=== PATIENT | female | born 1975 | race Caucasian/White ===

== ENCOUNTER 2017-08-20 17:30 | Emergency (ER) | payer MEDICAID, OTHER ==
[2017-08-20] MEDS ORDERED: Ibuprofen TAB* 800 MG PO ONE (19:50)
[2017-08-20] MEDS ORDERED: oxyCODONE/Acetamin 5/325 MG* TAB PO ONE (19:50)
[2017-08-20] MEDS ORDERED: Clindamycin CAP* 150 MG PO ONE (19:50)
--- NOTE | 2017-08-20 20:38 | ED ---
Jesse Cary Tecjoon, scribed for Inderjit Juarez MD on 08/20/17 at 1958 . Headache - HPI Summary HPI Summary: This patient is a 41 year old female presenting to [facility] accompanied by son with a chief complaint of left sided face pain since about 1.5 weeks ago. The pain is rated 8/10 in severity. Symptoms aggravated by touch. Symptoms alleviated by nothing. Patient additionally reports left sided dental pain, sinus pressure, headache, lightheaded, nausea. Patient denies fever, vomiting. Patient notes that this headache is unfamiliar. - History Of Current Complaint Chief Complaint: EDHeadache Stated Complaint: HEADACHE Time Seen by Provider: 08/20/17 19:36 Hx Obtained From: Patient Onset/Duration: Started weeks ago - 1.5 Currently Pain Is: Moderate - 8/10 Timing: Constant Character: Pressure - sinus pressure Location of Headache: Other: - left sided Radiates to: teeth Aggravating Factor: Nothing Allevating Factors: Nothing Associated Signs And Symptoms: Negative - fever, vomiting, Other (Noted In Comments) - left sided dental pain, sinus pressure, headache, lightheaded, nausea, face pain - Allergies/Home Medications Allergies/Adverse Reactions: Allergies Allergy/AdvReac Type Severity Reaction Status Date / Time Penicillins Allergy Severe hives, Verified 12/20/15 13:50 vomiting Bee Venom Allergy Airway Verified 12/20/15 13:50 Obstruction ORANGES Allergy Hives/Diff. Uncoded 12/20/15 13:50 Breathing/I tching RUBBING ALCOHOL Allergy Blisters Uncoded 12/20/15 13:50 PMH/Surg Hx/FS Hx/Imm Hx Previously Healthy: No Endocrine/Hematology History: Denies: Hx Diabetes Cardiovascular History: Denies: Hx Hypertension, Hx Pacemaker/ICD Respiratory History: Reports: Hx Asthma - H/O BRONCHIAL ASTHMA History: Denies: Hx Renal Disease Sensory History: Denies: Hx Hearing Aid Psychiatric History: Denies: Hx Panic Disorder - Cancer History Hx Chemotherapy: No Hx Radiation Therapy: No Infectious Disease History: No Infectious Disease History: Denies: Traveled Outside the [place] in Last 30 Days - Family History Known Family History: Negative: Blood Disorder - Social History Alcohol Use: Weekly Hx Substance Use: No Substance Use Type: Reports: None Hx Tobacco Use: Yes Smoking Status (MU): Light Every Day Tobacco Smoker Review of Systems Positive: Other - lightheadedness. Negative: Fever Positive: Dental Pain, Other - sinus pressure, left sided face pain Positive: Nausea. Negative: Vomiting Positive: Headache All Other Systems Reviewed And Are Negative: Yes Physical Exam - Summary Physical Exam Summary: VITAL SIGNS: Reviewed. GENERAL: Patient is a well-developed and nourished female who is lying comfortable in the stretcher. Patient is not in any acute respiratory distress. HEAD AND FACE: No signs of trauma. No ecchymosis, hematomas or skull depressions. Tenderness in left maxilla. EYES: PERRLA, EOMI x 2, No injected conjunctiva, no nystagmus. EARS: Hearing grossly intact. Ear canals and tympanic membranes are within normal limits. MOUTH: Oropharynx within normal limits. Tenderness in left upper gum, anteriorly. NECK: Supple, trachea is midline, no adenopathy, no JVD, no carotid bruit, no c- spine tenderness, neck with full ROM. CHEST: Symmetric, no tenderness at palpation LUNGS: Clear to auscultation bilaterally. No wheezing or crackles. CVS: Regular rate and rhythm, S1 and S2 present, no murmurs or gallops appreciated. ABDOMEN: Soft, non-tender. No signs of distention. No rebound no guarding, and no masses palpated. Bowel sounds are normal. EXTREMITIES: FROM in all major joints, no edema, no cyanosis or clubbing. NEURO: Alert and oriented x 3. No acute neurological deficits. Speech is normal and follows commands. SKIN: Dry and warm Triage Information Reviewed: Yes Vital Signs On Initial Exam: Initial Vitals Temp Pulse Resp BP Pulse Ox 98.7 F 83 20 117/46 97 08/20/17 17:34 08/20/17 17:34 08/20/17 17:34 08/20/17 17:34 08/20/17 17:34 Vital Signs Reviewed: Yes Diagnostics - Vital Signs Vital Signs Temp Pulse Resp BP Pulse Ox 08/20/17 17:34 98.7 F 83 20 117/46 97 - Laboratory Lab Statement: Any lab studies that have been ordered have been reviewed, and results considered in the medical decision making process. Headache Course/Dx - Course Course Of Treatment: This patient is a 41 year old female presenting to [facility] accompanied by son with a chief complaint of left sided face pain since about 1.5 weeks ago. The pain is rated 8/10 in severity. Symptoms aggravated by touch. Patient additionally reports left sided dental pain, sinus pressure, headache, lightheaded, nausea. In the ED course the patient was given Clindamycin, Motrin, and Percocet. Patient has tenderness of right upper gum and maxilla. Most likely gingivitis. Patient will be given prescription for antibiotics and pain meds. Patient is advised to follow up with PCP and dentist in 1-2 days. The patient is agreeable with this plan. - Diagnoses Provider Diagnoses: Gingivitis Discharge - Discharge Plan Condition: Fair Disposition: HOME Prescriptions: Clindamycin Cap(NF) [Clindamycin Cap 300 mg Cap(NF)] 300 mg PO Q6H #30 cap oxyCODONE/Acetamin 5/325 MG* [Percocet 5/325 TAB*] 1 tab PO Q6H PRN #14 tab MDD 4 PRN Reason: Pain - Moderate To Severe Patient Education Materials: Gingivitis (ED), Atypical Facial Pain (ED) Referrals: Gema Jackson MD [Primary Care Provider] - 2 Days Additional Instructions: Patient will be given prescription for antibiotics and pain meds. Patient is advised to follow up with PCP and dentist in 1-2 days. The patient is agreeable with this plan. The documentation as recorded by the Jesse portillo Tecjoon accurately reflects the service I personally performed and the decisions made by Larry desouza Abdul, MD.
[2017-08-20 21:22] VITALS: BP 119/59
== END 2017-08-20 21:22 | disposition home or self-care (01) ==
LOC: ED 17:30
DX: K05.10 Chronic gingivitis, plaque induced (principal); Z72.0 Tobacco use
CPT/HCPCS: 99282; A9270-GY

== ENCOUNTER 2019-11-11 05:43 | Observation (INO) | payer OTHER ==
[~2019-11-11 05:43] MED LIST: Buffered Lidocaine 1% SYRIN* 1 ML/SYRINGE INTRADERM ONE
[2019-11-11] MEDS ORDERED: Famotidine IV* 10 MG/ML 2 ML (20 mg) IV ONE (06:00)
[2019-11-11] MEDS ORDERED: Lactated Ringers 1000 ML Bag* 1,000 ML IV SCH ×2 (06:00→10:00)
[2019-11-11] MEDS ORDERED: Famotidine IV* 10 MG/ML 2 ML (20 mg) ONE (06:35)
[2019-11-11] MEDS ORDERED: Clindamycin 900 MG/D5W BAG(*) 900 MG/50 ML BAG IVPB ONE (07:10)
[2019-11-11] MEDS ORDERED: Ketorolac INJ* 30 MG/ML 1 ML VIAL ONE (07:13)
[2019-11-11] MEDS ORDERED: Dexamethasone IV* 4 MG/ML 1 ML (4 MG) ONE (07:13)
[2019-11-11] MEDS ORDERED: Rocuronium* 10 MG/ML VIAL ONE (07:13)
[2019-11-11] MEDS ORDERED: fentaNYL* 50 MCG/ML 5 ML VIAL (250 MCG VIAL) ONE (07:13)
[2019-11-11] MEDS ORDERED: Lidocaine 2% PF * 5 ML VIAL ONE (07:13)
[2019-11-11] MEDS ORDERED: Propofol* 10 MG/ML 20 ML BTL ONE (07:13)
[2019-11-11] MEDS ORDERED: Midazolam* 1 MG/ML 5 ML VIAL (5 MG) ONE (07:13)
[2019-11-11] MEDS ORDERED: Ondansetron INJ* 2 MG/ML VIAL ONE (07:13)
[2019-11-11] MEDS ORDERED: Bupivacaine 0.5%* 50 ML MDV VIAL ONE (07:32)
[2019-11-11] MEDS ORDERED: NS 0.9% IVPB ONE (08:00)
[2019-11-11] MEDS ORDERED: GENTAMICIN ADULT IVPB ONE (08:00)
[2019-11-11] MEDS ORDERED: EPHEDrine (Pressors)* 50 MG/ML VIAL ONE (08:19)
[2019-11-11] MEDS ORDERED: Levalbuterol 0.63MG/3ML NEB* UNIT OF USE INH PRN (09:10)
[2019-11-11] MEDS ORDERED: Naloxone* 0.4 MG/ML 1 ML VIAL IV PRN (09:10)
[2019-11-11] MEDS ORDERED: Ondansetron INJ* 2 MG/ML VIAL IV PRN ×2 (09:10→09:44)
[2019-11-11] MEDS ORDERED: fentaNYL* 50 MCG/ML 2 ML VIAL (100 MCG VIAL) IV PRN (09:10)
[2019-11-11] MEDS ORDERED: HYDROmorphone INJ1* 1 MG/ML SYRINGE IV PRN (09:10)
[2019-11-11] MEDS ORDERED: Neostigmine Methylsulfate* 1 MG/ML 10 ML VIAL (1 mg/ml) ONE (09:20)
[2019-11-11] MEDS ORDERED: Glycopyrrolate IV* 0.2 MG/ML 1 ML VIAL ONE (09:20)
[2019-11-11] MEDS ORDERED: HYDROmorphone INJ1* 1 MG/ML SYRINGE ONE (09:21)
[2019-11-11] MEDS ORDERED: Ibuprofen TAB* 600 MG PO PRN (09:44)
[2019-11-11] MEDS ORDERED: oxyCODONE/Acetamin 5/325 MG* TAB PO PRN (09:44)
[2019-11-11] MEDS ORDERED: Docusate CAP* 100 MG PO PRN (09:47)
[2019-11-11] MEDS ORDERED: Simethicone TAB* 80 MG TAB.CHEW PO PRN (09:47)
[2019-11-11 17:35] VITALS: BP 108/69
[2019-11-11 18:52] LABS: ABS Lymphocytes 1.2 10^3/ul (1.0-4.8); ABS Monocytes 0.2 10^3/ul (0-0.8); ABS Neutrophils 7.7 10^3/ul (1.5-7.7); Hematocrit 41 % (35-47); Lymphocyte % 13.3 %; Mean Corpuscular HGB Conc 35 g/dL (31-36); Mean Corpuscular Hemoglobin 34 pg (27-31); Mean Corpuscular Volume 97 fL (80-97); Mean Platelet Volume 6.9 fL (7.4-10.4); Platelet Count 245 10^3/uL (150-450); Red Blood Count 4.19 10^6 /uL (3.70-4.87); Red Cell Distribution Width 13 % (10-15); White Blood Count 9.2 10^3/uL (3.5-10.8)
--- NOTE | 2019-11-11 19:12 | PN ---
Progress Note - Progress Note Date of Service: 11/11/19 SOAP: Subjective: [Patient is post Laparoscopic supracervical hysterectomy and bilateral salpingectomy today at 10 am. She is tolerating a regular diet ( lunch and dinner), ambulating and voiding with no difficulty, and pain is tolerable with oral medications. She denies nausea/vomiting, chest pain, shortness of breath.] Objective: [ Temp Pulse Resp BP Pulse Ox 97.5 F 59 16 108/69 100 11/11/19 17:34 11/11/19 17:34 11/11/19 17:34 11/11/19 17:34 11/11/19 17:34 Laboratory Results - last 24 hr 11/11/19 18:46 WBC 9.2 RBC 4.19 Hgb 14.0 Hct 41 MCV 97 MCH 34 H MCHC 35 RDW 13 Plt Count 245 MPV 6.9 L Neut % (Auto) 84.5 Lymph % (Auto) 13.3 Rosebud % (Auto) 2.0 Eos % (Auto) 0.0 Baso % (Auto) 0.2 Absolute Neuts (auto) 7.7 Absolute Lymphs (auto) 1.2 Absolute Monos (auto) 0.2 Absolute Eos (auto) 0.0 Absolute Basos (auto) 0.0 Absolute Nucleated RBC 0.0 Nucleated RBC % 0.0 Lungs CTA b/l, no CVA tenderness b/l CV RRR no abnormal heart sounds noted. Abdomen soft, normal bowel sounds, mildly distended, appropriately tender with clean/dry/intact wound dressings. ] Assessment: [Patient is stable, ambulating with normal vital signs, post-operative CBC, tolerating reg diet on PO meds.] Plan: [Discharge home, discharge instructions reviewed with the patient. She has f/u appt at my office in 1 week.]
--- NOTE | 2019-11-12 22:16 | DS ---
DISCHARGE SUMMARY: DATE OF ADMISSION: 11/11/19 DATE OF DISCHARGE: 11/11/19 ADMISSION DIAGNOSES: 1. Chronic pelvic pain. 2. Abnormal uterine bleeding. PROCEDURE: Laparoscopic supracervical hysterectomy, bilateral salpingectomy. The patient was brought into the operating room the date of admission when she underwent a laparoscop ic supracervical hysterectomy and bilateral salpingectomy after which she was then transferred to the recovery room area where her recovery was uneventful. She was then admitted to the floor under obse rvation at around 10 a.m. HOSPITAL COURSE: She had stable vital signs. She was afebrile with normal blood pressures and pulse throughout her stay. She was tolerating a regular diet and passing flatus. She was ambulating with out difficulty and voiding without any difficulty as well. She was taking oral medications for pain control. At around 7:30 p.m., the patient was deemed to be stable for discharge. Hemoglobin and hem atocrit was 14/41. So, our disposition was to discharge the patient home. She had a followup appoin tment scheduled 1 week after her procedure and I reviewed her discharge instructions with the patient . The patient was discharged on oral medications, which were sent to her pharmacy. [id number]/[facility] #: [id number]
--- NOTE | 2019-11-12 22:41 | OP ---
CC: Dr. Saxena * DATE OF OPERATION: 11/11/19 - ROOM #332 DATE OF : 71 SURGEON: José Miguel Hernandez MD STEAM SHOVEL RUNNER: Dr. Zeke Saexna. ANESTHESIA: General anesthetic with endotracheal intubation. PRE-OP DIAGNOSIS: Chronic pelvic pain and abnormal uterine bleeding. POST-OP DIAGNOSIS: Chronic pelvic pain and abnormal uterine bleeding, pending pathology. OPERATIVE PROCEDURE: Laparoscopic supracervical hysterectomy with bilateral salpingectomy. ESTIMATED BLOOD LOSS: None. FLUIDS: The patient received 1850 cc of IV crystalloid fluid. URINE OUTPUT: 500 cc of clear urine. FINDINGS: The patient laparoscopically was noted to have normal tubes and ovaries bilaterally with small follicular ovarian cyst in her left ovary. There was normal uterus with no apparent lesions, normal bowel and bladder, and there were no complications. DESCRIPTION OF PROCEDURE: The patient was taken to the operating room where she was identified. She was placed on the operating table where a general anesthetic with endotracheal intubation was obtained without difficulty. She was then placed in the dorsal lithotomy position, prepped and draped in normal sterile fashion. Attention was then brought on to the patient's perineum where the bladder was catheterized with a Charles catheter and drained of clear urine. A side-view speculum was then introduced into the patient's vagina. The cervix was identified, grasped with single-tooth tenaculum. The uterus was then sounded to 9 cm in an anteverted position and through the cervix, a ClearView uterine manipulator was introduced. The balloon in the manipulator was insufflated with 3 cc of sterile water and the single-tooth tenaculum was removed from the cervix as well as the speculum from the vagina. Attention was then brought on to the patient's abdomen where an infraumbilical skin incision vertically was made with a knife and carried through to underlying layer of fascia. The fascia was then grasped with Jacob clamps, brought up to the incision, and incised vertically about 2 to 3 cm. The Jacob clamps on the fascia were then replaced with 0 Polysorb sutures. Through this incision, a single-site GelPOINT port was introduced, and through the port, a trocar was introduced and a 5-mm 30-degree trocar was then introduced into the patient's abdomen. The patient's abdomen was insufflated with CO2 gas, and a view of the patient's abdomen with the laparoscope revealed findings as noted above. At this point, we proceeded to insert 2 other trocars at the right and left upper quadrants of the patient's abdomen under direct visualization. We then proceeded with our procedure. Initially, we started by grasping the fallopian tube and its fimbriated end. They were serially coagulated and transected using a LigaSure device from their serosal attachment and this operative technique was done bilaterally in the usual fashion. The fallopian tubes were then removed from the patient's abdomen and sent to Pathology. The round ligament was identified bilaterally with the LigaSure device and were grasped. They were coagulated and triple clipped and then transected. The uteroovarian ligament was also identified bilaterally with LigaSure, coagulated and transected. A window was then made in the anterior leaf of the broad ligament with the LigaSure device and dissection of the anterior leaf of the broad ligament was done using sharp and blunt dissection with a LigaSure device. The anterior leaf of the broad ligament was dissected inferiorly and a bladder flap was created using sharp dissection with the LigaSure device and cautery. The bladder was then mobilized away from the lower uterine segment. At this point, the uterine arteries were identified bilaterally. They were grasped at the superior aspect of the cervical uterine junction, transected and coagulated with the LigaSure device and triple clipped and transected. They were then further desiccated and transected with the LigaSure device towards the cervix. Once we were able to clear the uterine arteries away from the cervical uterine junction, a SupraLoop was introduced through a trocar. It was wrapped around the uterus and the cervix proximally to the uterus. It was then set at 110 pure -cut setting. It was then turned on and the uterus was then decapitated from the cervix. The cervical pedicle was completely hemostatic as well as all the other surgical pedicles. The SupraLoop was removed from the patient's abdomen. An Endobag was introduced through the umbilical port. The uterus was then placed into the Endobag and it was brought up through the umbilical incision. It was then morcellated with Hilton scissors and removed entirely from the patient 's abdomen and sent to Pathology. The bag at this point was also removed from the patient's abdomen. A second look with the laparoscope revealed complete hemostatic surgical sites and surgical pedicles. We then proceeded to irrigate the patient's pelvis with normal saline. This was then suctioned away from the pelvis. All the trocars in the right and left upper quadrants of the patient's abdomen were removed under direct visualization. The GelPOINT at the umbilicus was also removed and the CO2 gas was removed from the patient's abdomen. The abdominal incision, the fascia was closed with 0 Polysorb suture at the umbilicus in a running fashion and the rest of the skin incisions were then closed including the umbilicus with 4-0 Monocryl subcuticular stitches in a running fashion and with Steri-Strips. The Charles catheter was removed from the patient's vagina as well as the uterine manipulator was removed prior to decapitating the uterus from the cervix. The patient tolerated the procedure well. Sponge, lap, needle counts were correct x2. She was then transferred to recovery room area in stable condition. [id number]/[facility] #: [id number] MTDD
[2019-11-14] MEDS ORDERED: Scopolamine PATCH Remove* 1 NOTE MISC PATCH OFF ONE (09:11)
== END 2019-11-11 19:45 | disposition home or self-care (01) ==
LOC: OR 05:43 → SSU 09:44
PROVIDERS: ADMIT Obstetrics & Gynecology; ATTEND Obstetrics & Gynecology
DX: N92.1 Excessive and frequent menstruation with irregular cycle (principal); R10.2 Pelvic and perineal pain; N94.5 Secondary dysmenorrhea; R93.89 Abnormal findings on diagnostic imaging of other specified body structures; K21.9 Gastro-esophageal reflux disease without esophagitis; M50.30 Other cervical disc degeneration, unspecified cervical region; Z88.0 Allergy status to penicillin
CPT/HCPCS: 36415; 81025; 85025; 88307; 96374; A9270-GY; G0378; J1100; J1170; J1580; J1885; J2250; J2405; J2704; J2710; J3010; J3490